=== PATIENT | male | born 1950 | race Caucasian/White ===

== ENCOUNTER 2017-07-06 19:16 | Emergency (ER) | payer MEDICARE ==
[~2017-07-06] VITALS: Ht 172.7 cm; Wt 86.2 kg
[2017-07-06 19:16] VITALS: BP 138/93
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
== END 2017-07-06 21:18 | disposition home or self-care (01) ==
LOC: ER 19:16
DX: M79.641 Pain in right hand (principal); V89.0XXA Person injured in unspecified motor-vehicle accident, nontraffic, initial encounter; Y93.89 Activity, other specified; Y92.410 Unspecified street and highway as the place of occurrence of the external cause; Y99.8 Other external cause status
CPT/HCPCS: A4606; Z7610